=== PATIENT | female | born 1990 | race Caucasian/White ===

== ENCOUNTER → 2021-04-30 | Day surgery (SDC) | payer OTHER ==
[2021-04-22 12:02] LABS: BASOPHILS % (AUTO) 0.5 % (0-1); EOSINOPHILS % (AUTO) 0.6 % (0-6); LYMPHOCYTES # (AUTO) 2.2 X10'3 (1.1-4.8); LYMPHOCYTES % (AUTO) 37.9 % (21-51); MEAN CORPUSCULAR HEMOGLOBIN 30.2 PG (27.0-31.0); MEAN CORPUSCULAR HGB CONC 33.5 g/dL (33.0-36.5); MEAN CORPUSCULAR VOLUME 90.1 FL (78-98); MONOCYTES # (AUTO) 0.3 X10'3 (0-0.9); MONOCYTES % (AUTO) 5.8 % (2-12); NEUTROPHILS # (AUTO) 3.2 X10'3 (1.8-7.7); NEUTROPHILS % (AUTO) 55.2 % (42-75); PRE OP HEMATOCRIT 36.2 % (35.0-45.0); PRE OP HEMOGLOBIN 12.2 g/dL (12.0-16.0); PRE OP PLATELET COUNT 229 X10'3 (140-440); RED BLOOD COUNT 4.02 X10'6 (4.20-5.60); RED CELL DISTRIBUTION WIDTH 16.4 % (11.5-14.5)
[2021-04-22 12:23] LABS: HCG SERUM QL NEGATIVE
[2021-04-22 12:59] LABS: ALBUMIN/GLOBULIN RATIO 1.6 (1.1-1.5); BLOOD UREA NITROGEN 11 MG/DL (7-18); BUN/CREATININE RATIO 15.1 (6.6-38.0); CALCIUM 8.8 MG/DL (8.5-10.1); CHLORIDE 106 MMOL/L (99-107); CREATININE 0.73 MG/DL (0.40-0.90); PRE OP ALT 20 U/L (30-65); PRE OP ANION GAP 9 (8-16); PRE OP AST 15 U/L (10-37); PRE OP BILIRUB, TOTAL 0.3 MG/DL (0.0-1.0); PRE OP GLUCOSE 87 MG/DL (70-104); PRE OP POTASSIUM 3.9 MMOL/L (3.4-5.1); PRE OP SODIUM 139 MMOL/L (135-145); TOTAL CARBON DIOXIDE 24.4 MMOL/L (24-32); TOTAL PROTEIN 6.5 G/DL (6.4-8.2); eGFR > 90 ML/MIN
[2021-04-22 13:08] LABS: ALKALINE PHOSPHATASE 31 IU/L (46-116)
[2021-04-30] VITALS (12 sets, daily range): BP systolic 100–123; BP diastolic 57–72
[~2021-04-30] VITALS: Ht 160 cm; Wt 50.4 kg
[~2021-04-30] MED LIST: BUPIVAcaine 0.5% inj/PF 30 ML ONE; BUPIVAcaine 0.5% inj/PF 30 ml vial IJ ONE; FENTANYL CITRATE/PF 50 MCG/1 ML VIAL ONE; LIDOcaine 1% (10mg/ml) 2ml vial ONE; LIDOcaine 2% (20mg/ml) 5ml vial ONE; NO HOME MEDS; acetaminophen 1,000mg/100ml IV 100 ML IV PRN; dexamethasone sod phosphate 4mg/ml inj. ONE; famotidine 20mg tablet PO ONE; glycopyrrolate 0.2mg/ml inj ONE; ketorolac trometh. 30mg/ml inj. IV ONE; meperidine/PF 25mg/ml syringe IV PRN; metroNIDAZOLE-Flagyl 500mg/NS 100ml IVPB IV ONE; midazolam 1 mg/ML 2ml injection ONE; morphine 2 MG/ML inj. syringe IV PRN; morphine 4 MG/ML inj SYRINge IV PRN; ondansetron/PF 4mg/2ml inj IV PRN; ondansetron/PF 4mg/2ml inj ONE; proCHLORperazine 10 MG/2 ml inj IV PRN; propofol inj 20 ML IV ONE; ringers solution, lacted 1,000 ML IV SCH; rocuronium 10mg/ml inj IV ONE
--- NOTE | 2021-04-30 12:18 | NUR ---
MASK 10 LITERS, VVS, 20 GAUGE RIGHT WRIST, LAPS SITES X 3 DERMA VENCES, NO DRAINAGE IN PAD, PATIENT IS PAINFUL ADIM PAIN MEDS, LR AT 100ML/HR Addendum: 04/30/21 at 1232 by Stefany Chatman RN Amended: Links added.
--- NOTE | 2021-04-30 14:08 | NUR ---
PATIENTS PAIN STABILIZED.SHE NOTED 3/10 AND COMFORTABL, VSS, DC'D IV 20G IN LEFT WRIST NO COMPLICATIONS. PATIENT MET DISCHARGE CRITERIA.
== END | disposition home or self-care (01) ==
LOC: PAS 07:54
PROVIDERS: ATTEND Obstetrics & Gynecology
DX: Z30.2 Encounter for sterilization (principal); N92.0 Excessive and frequent menstruation with regular cycle; D64.9 Anemia, unspecified; F41.9 Anxiety disorder, unspecified; Z79.899 Other long term (current) drug therapy; Z98.890 Other specified postprocedural states; Z88.2 Allergy status to sulfonamides; Z87.442 Personal history of urinary calculi
CPT/HCPCS: 36415; 58563; 58670; 80053; 82948; 84703; 85025; 86885; 86900; 86901; J0131; J1100; J1885; J2175; J2250; J2270; J2405; J2704; J3010; J3490; J7030; J7120; S0020; Z7506; Z7508; Z7512; A4355; A4618; A4649